=== PATIENT | male | born 1985 ===

== ENCOUNTER 2019-02-01 11:16 | Emergency (ER) | payer SELFPAY ==
--- NOTE | 2019-02-01 11:32 | Event Note ---
ED Screening Note Date of service: 02/01/19 Time: 11:28 ED Screening Note: This is a 33 y.o. M. that presents to the ER with dyspnea and anxious since last night. 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 Denies SI/HI, or travel. Admits to using crack cocaine Thursday. Reports feeling okay right now. This initial assessment/diagnostic orders/clinical plan/treatment(s) is/are subject to change based on patients health status, clinical progression and re-assessment by fellow clinical providers in the ED. Further treatment and workup at subsequent clinical providers discretion. Patient/guardian urged not to elope from the ED as their condition may be serious if not clinically assessed and managed. Initial orders include:
--- NOTE | 2019-02-01 12:02 | Emergency Department Report ---
HPI - General Chief Complaint: High BP Time Seen by Provider: 02/01/19 11:27 - HPI HPI: Room 44 The patient is a 33-year-old male presenting with a chief complaint of shortness of breath. The patient states her past 2 weeks he exhibits shortness of breath in the morning when he awakens. Patient denies chest pain cough or fever with his episodes. Patient denies nausea or vomiting. Patient admits to occasional cocaine use and states his last use occurred approximately 15 days ago. Location: [See above] Duration: [See above] Quality: [See above] Severity: [See above] Timing: [See above] Context: [See above] Modifying factors: [See above] Associated signs and symptoms: [see above] ED Past Medical Hx - Past Medical History Previous Medical History?: No - Surgical History Past Surgical History?: No - Family History Family history: no significant - Social History Smoking Status: Never Smoker Substance Use Type: Alcohol, Cocaine - Medications Home Medications: Home Medications Medication Instructions Recorded Confirmed Last Taken Type ALBUTEROL Inhaler (OR & NICU) 2 puff IH QID PRN #1 inhalation 02/01/19 Unknown Rx [Proair] Prednisone [predniSONE 10 mg 10 mg PO .TAPER #1 tab.ds.pk 02/01/19 Unknown Rx (6-Day Pack, 21 Tabs)] ED Review of Systems ROS: Stated complaint: LOW BLOOD SUGAR/ANIXETY Other details as noted in HPI Constitutional: denies: fever Eyes: denies: eye pain ENT: denies: throat pain Respiratory: shortness of breath. denies: cough Cardiovascular: denies: chest pain Endocrine: no symptoms reported Gastrointestinal: denies: abdominal pain, nausea, vomiting Genitourinary: denies: dysuria Musculoskeletal: denies: back pain Neurological: denies: headache Physical Exam - Physical Exam Vital Signs: Vital Signs 02/01/19 11:21 Temperature 98.7 F Pulse Rate 72 Respiratory 18 Rate Blood Pressure 145/91 O2 Sat by Pulse 97 Oximetry Physical Exam: GENERAL: The patient is well-developed well-nourished male sitting in chair not appearing to be in acute distress. [] HEENT: Normocephalic. Atraumatic. Extraocular motions are intact. Patient has moist mucous membranes. NECK: Supple. Trachea midline CHEST/LUNGS: Clear to auscultation. There is no respiratory distress noted. HEART/CARDIOVASCULAR: Regular. There is no tachycardia. There is no gallop rub or murmur. ABDOMEN: Abdomen is soft, nontender. Patient has normal bowel sounds. There is no abdominal distention. SKIN: There is no rash. There is no edema. There is no diaphoresis. NEURO: The patient is awake, alert, and oriented. The patient is cooperative. The patient has normal speech MUSCULOSKELETAL: There is no evidence of acute injury. ED Course Vital Signs 02/01/19 11:21 Temperature 98.7 F Pulse Rate 72 Respiratory 18 Rate Blood Pressure 145/91 O2 Sat by Pulse 97 Oximetry ED Medical Decision Making - Lab Data Result diagrams: 02/01/19 12:11 02/01/19 12:11 - EKG Data -: EKG Interpreted by Me EKG shows normal: sinus rhythm Rate: normal - EKG Data When compared to previous EKG there are: previous EKG unavailable Interpretation: other (no ischemic changes seen) - Radiology Data Radiology results: image reviewed (chest x-ray) interpreted by me: Chest x-ray-no focal infiltrates, no pneumothorax - Differential Diagnosis COPD, PE, anxiety Critical care attestation.: If time is entered above; I have spent that time in minutes in the direct care of this critically ill patient, excluding procedure time. ED Disposition Clinical Impression: Shortness of breath Disposition: DC-01 TO HOME OR SELFCARE Is pt being admited?: No Does the pt Need Aspirin: No Condition: Stable Instructions: Dyspnea (ED) Additional Instructions: Return to the emergency department should you develop worsening symptoms, inability to tolerate food or liquids, high fever or any other concerns Prescriptions: Prednisone [predniSONE 10 mg (6-Day Pack, 21 Tabs)] 10 mg PO .TAPER #1 tab.ds.pk ALBUTEROL Inhaler (OR & NICU) [Proair] 2 puff IH QID PRN #1 inhalation PRN Reason: Shortness Of Breath Referrals: ANAIS CHAO MD [Staff Physician] - 3-5 Days [facility] [Outside] - 3-5 Days
[2019-02-01 12:41] LABS: Basophils # (Auto) 0.1 K/mm3 (0.0-0.1); Basophils % (Auto) 0.8 % (0.0-1.8); Eosinophils # (Auto) 0.1 K/mm3 (0.0-0.4); Eosinophils % (Auto) 0.7 % (0.0-4.3); Hematocrit 46.6 % (35.5-45.6); Hemoglobin 16.2 gm/dl (11.8-15.2); Lymphocytes # (Auto) 2.2 K/mm3 (1.2-5.4); Lymphocytes % (Auto) 24.5 % (13.4-35.0); Mean Corpuscular HGB Conc 35 % (32-34); Mean Corpuscular Volume 86 fl (84-94); Monocytes # (Auto) 0.7 K/mm3 (0.0-0.8); Monocytes % (Auto) 7.3 % (0.0-7.3); Platelet Count 271 K/mm3 (140-440); Red Cell Distribution Width 13.8 % (13.2-15.2)
[2019-02-01 13:00] LABS: Creatine Kinase MB 2.6 ng/mL (0.0-4.0)
[2019-02-01 13:01] LABS: BUN/Creatinine Ratio 20; Blood Urea Nitrogen 14 mg/dL (9-20); Calcium 10.2 mg/dL (8.4-10.2); Hemolysis Index 10
[2019-02-01 13:15] LABS: Free T4 (Free Thyroxine) 0.95 ng/dL (0.76-1.46)
--- NOTE | 2019-02-01 14:20 | XRay Report ---
CHEST 2 VIEWS INDICATION / CLINICAL INFORMATION: shortness of breath. COMPARISON: None available. FINDINGS: SUPPORT DEVICES: None. HEART / MEDIASTINUM: No significant abnormality. LUNGS / PLEURA: No significant pulmonary or pleural abnormality. No pneumothorax. ADDITIONAL FINDINGS: No significant additional findings. IMPRESSION: No significant abnormality. Signer Name: Kyle Forbes MD FACR Signed: 02/01/2019 2:16 PM Workstation Name: [id number]
[2019-02-01 15:10] VITALS: BP 126/86
== END 2019-02-01 15:09 | disposition home or self-care (01) ==
LOC: ED 11:16
DX: R06.02 Shortness of breath (principal); Z79.899 Other long term (current) drug therapy
CPT/HCPCS: 36415; 71046; 80048; 82550; 82553; 83880; 84439; 84443; 84484; 85025; 85379; 93005; 93010

== ENCOUNTER 2019-08-06 20:18 | Emergency (ER) | payer SELFPAY ==
[2019-08-06 21:28] LABS: Basophils # (Auto) 0.1 K/mm3 (0.0-0.1); Basophils % (Auto) 0.7 % (0.0-1.8); Eosinophils # (Auto) 0.2 K/mm3 (0.0-0.4); Eosinophils % (Auto) 2.7 % (0.0-4.3); Lymphocytes # (Auto) 2.8 K/mm3 (1.2-5.4); Lymphocytes % (Auto) 37.5 % (13.4-35.0); Mean Corpuscular HGB Conc 35 % (32-34); Mean Corpuscular Volume 84 fl (84-94); Monocytes # (Auto) 0.5 K/mm3 (0.0-0.8); Monocytes % (Auto) 7.1 % (0.0-7.3); Platelet Count 220 K/mm3 (140-440); Red Blood Count 4.78 M/mm3 (3.65-5.03); Red Cell Distribution Width 13.4 % (13.2-15.2)
--- NOTE | 2019-08-06 21:29 | XRay Report ---
CHEST 2 VIEWS INDICATION / CLINICAL INFORMATION: Chest Pain. COMPARISON: Chest x-ray 02/01/2019 FINDINGS: SUPPORT DEVICES: None. HEART / MEDIASTINUM: No significant abnormality. LUNGS / PLEURA: No significant pulmonary or pleural abnormality. No pneumothorax. ADDITIONAL FINDINGS: No significant additional findings. IMPRESSION: 1. No acute findings. Signer Name: Joaquin Jenkins MD Signed: 08/06/2019 9:24 PM Workstation Name: [id number]
[2019-08-06 21:48] LABS: BUN/Creatinine Ratio 21; Blood Urea Nitrogen 17 mg/dL (9-20); Calcium 9.7 mg/dL (8.4-10.2); Hemolysis Index 13
[2019-08-06 22:41] VITALS: BP 141/87
--- NOTE | 2019-08-06 22:45 | Emergency Department Report ---
ED General Adult HPI - General Chief complaint: Chest Pain Stated complaint: SOB Time Seen by Provider: 08/06/19 22:02 Source: patient Mode of arrival: Ambulatory Limitations: No Limitations - History of Present Illness Initial comments: This pleasant 34-year-old male presents the emergency department chief complaint of intermittent tightness in the left side of his chest over the past few 6 months. Patient was seen in the emergency department and given prednisone and an albuterol inhaler and reports this really helped his symptoms however he is out of the medication. He reports that over the past week he has been having increasing tightness in his chest with some associated shortness of breath. He points to the left side of his sternum with one finger. He rates the severity of his symptoms as a 2 out of 10 and states he is not having any pain currently. He states the last time he had any pain was over 1 week ago. He denies any cough, recent travel, fever, chills, night sweats, headache, dizziness, blurry vision, hemoptysis, lower extremity edema. He denies any known past medical history, current medication use or known allergies to medications. He denies any recent travel or immobilization. He does report he quit smoking 4 months ago. He denies any sudden cardiac or coronary artery disease in his family history. He denies any personal history of hypertension, diabetes, hyperlipidemia. - Related Data Previous Rx's Medication Instructions Recorded Last Taken Type Albuterol INH(or & Nicu Only) 2 puff IH QID PRN #1 inhalation 02/01/19 Unknown Rx [Proair] Prednisone [predniSONE 10 mg 10 mg PO .TAPER #1 tab.ds.pk 02/01/19 Unknown Rx (6-Day Pack, 21 Tabs)] Albuterol Sulfate [Proventil Hfa] 6.7 gm IH Q4HR PRN #1 hfa.aer.ad 08/06/19 Unknown Rx Loratadine [Claritin] 10 mg PO QDAY #20 tablet 08/06/19 Unknown Rx Allergies Allergy/AdvReac Type Severity Reaction Status Date / Time No Known Allergies Allergy Unverified 02/01/19 11:18 ED Review of Systems ROS: Stated complaint: SOB Other details as noted in HPI Comment: All other systems reviewed and negative Constitutional: denies: chills, fever Eyes: denies: eye pain, eye discharge, vision change ENT: denies: ear pain, throat pain Respiratory: shortness of breath. denies: cough, wheezing Cardiovascular: as per HPI, chest pain. denies: palpitations Endocrine: no symptoms reported Gastrointestinal: denies: abdominal pain, nausea, diarrhea Genitourinary: denies: urgency, dysuria Musculoskeletal: as per HPI. denies: back pain, joint swelling, arthralgia Skin: denies: rash, lesions Neurological: denies: headache, weakness, paresthesias Psychiatric: denies: anxiety, depression Hematological/Lymphatic: denies: easy bleeding, easy bruising ED Past Medical Hx - Past Medical History Previous Medical History?: No - Surgical History Past Surgical History?: No - Social History Smoking Status: Current Some Day Smoker Substance Use Type: Alcohol - Medications Home Medications: Home Medications Medication Instructions Recorded Confirmed Last Taken Type Albuterol INH(or & Nicu Only) 2 puff IH QID PRN #1 inhalation 02/01/19 Unknown Rx [Proair] Prednisone [predniSONE 10 mg 10 mg PO .TAPER #1 tab.ds.pk 02/01/19 Unknown Rx (6-Day Pack, 21 Tabs)] Albuterol Sulfate [Proventil Hfa] 6.7 gm IH Q4HR PRN #1 hfa.aer.ad 08/06/19 Unk nown Rx Loratadine [Claritin] 10 mg PO QDAY #20 tablet 08/06/19 Unknown Rx ED Physical Exam - General Limitations: No Limitations General appearance: alert, in no apparent distress - Head Head exam: Present: atraumatic, normocephalic - Eye Eye exam: Present: normal appearance, PERRL, EOMI Pupils: Present: normal accommodation - ENT ENT exam: Present: normal exam, normal orophraynx, mucous membranes moist, TM's normal bilaterally - Neck Neck exam: Present: normal inspection, full ROM. Absent: tenderness, meningismus - Respiratory Respiratory exam: Present: normal lung sounds bilaterally. Absent: respiratory distress, wheezes, rales, rhonchi, stridor, chest wall tenderness - Cardiovascular Cardiovascular Exam: Present: regular rate, normal rhythm, normal heart sounds. Absent: systolic murmur, diastolic murmur, rubs, gallop - GI/Abdominal GI/Abdominal exam: Present: soft, normal bowel sounds. Absent: distended, tenderness, guarding, rebound, rigid - Rectal Rectal exam: Present: deferred - Extremities Exam Extremities exam: Present: normal inspection, full ROM, normal capillary refill. Absent: tenderness, calf tenderness (Negative Homans sign bilaterally, no posterior calf tenderness, normal DP and PT pulses, no palpable cords.) - Back Exam Back exam: Present: normal inspection - Neurological Exam Neurological exam: Present: alert, oriented X3 - Psychiatric Psychiatric exam: Present: normal affect, normal mood - Skin Skin exam: Present: warm, dry, intact, normal color. Absent: rash ED Course Vital Signs 08/06/19 21:01 Temperature 98.5 F Pulse Rate 83 Respiratory 18 Rate Blood Pressure 141/87 O2 Sat by Pulse 97 Oximetry ED Medical Decision Making - Lab Data Result diagrams: 08/06/19 21:08/06/19 21: Lab Results 08/06/19 08/06/19 Range/Units 21:20 21:20 WBC 7.5 (4.5-11.0) K/mm3 RBC 4.78 (3.65-5.03) M/mm3 Hgb 14.0 (11.8-15.2) gm/dl Hct 40.0 (35.5-45.6) % MCV 84 (84-94) fl MCH 29 (28-32) pg MCHC 35 H (32-34) % RDW 13.4 (13.2-15.2) % Plt Count 220 (140-440) K/mm3 Lymph % (Auto) 37.5 H (13.4-35.0) % Pacific % (Auto) 7.1 (0.0-7.3) % Eos % (Auto) 2.7 (0.0-4.3) % Baso % (Auto) 0.7 (0.0-1.8) % Lymph # 2.8 (1.2-5.4) K/mm3 Pacific # 0.5 (0.0-0.8) K/mm3 Eos # 0.2 (0.0-0.4) K/mm3 Baso # 0.1 (0.0-0.1) K/mm3 Seg Neutrophils % 52.0 (40.0-70.0) % Seg Neutrophils # 3.9 (1.8-7.7) K/mm3 Sodium 140 (137-145) mmol/L Potassium 3.9 (3.6-5.0) mmol/L Chloride 101.9 (98-107) mmol/L Carbon Dioxide 26 (22-30) mmol/L Anion Gap 16 mmol/L BUN 17 (9-20) mg/dL Creatinine 0.8 (0.8-1.5) mg/dL Estimated GFR > 60 ml/min BUN/Creatinine Ratio 21 % Glucose 67 L (75-100) mg/dL Calcium 9.7 (8.4-10.2) mg/dL Troponin T < 0.010 (0.00-0.029) ng/mL - EKG Data -: EKG Interpreted by Ms EKG shows normal: sinus rhythm Rate: normal (73) - EKG Data When compared to previous EKG there are: previous EKG unavailable Interpretation: normal EKG (No acute ST or T wave abnormalities, no STEMI, normal axis, normal intervals) - Radiology Data Radiology results: report reviewed, image reviewed XRay Report Signed Patient: DAYNE MOON MR#: [id number] : 1985 Acct:[id number] Age/Sex: 34 / M ADM Date: 08/06/19 Loc: ED Attending Dr: Ordering Physician: ED MD TERESA Date of Service: 08/06/19 Procedure(s): XR chest routine 2V Accession Number(s): [id number] cc: ED MD TERESA Fluoro Time In Minutes: CHEST 2 VIEWS INDICATION / CLINICAL INFORMATION: Chest Pain. COMPARISON: Chest x-ray 02/01/2019 FINDINGS: SUPPORT DEVICES: None. HEART / MEDIASTINUM: No significant abnormality. LUNGS / PLEURA: No significant pulmonary or pleural abnormality. No pneum othorax. ADDITIONAL FINDINGS: No significant additional findings. IMPRESSION: 1. No acute findings. Signer Name: Joaquin Jenkins MD Signed: 08/06/2019 9:24 PM Workstation Name: [id number] Transcribed By: TL Dictated By: Joaquin Jenkins MD Electronically Authenticated By: Joaquin Jenkins MD Signed Date/Time: 08/06/192123 - Medical Decision Making Patient is nontoxic in no acute distress. Patient is currently asymptomatic and is not had any symptoms over the past week. EKG is unremarkable and troponin is negative. Patient's heart score is a 1 and that is just due to him being a previous smoker. He is not any history of hyperlipidemia, hypertension, diabetes or significant family history of coronary artery disease. He is not currently smoking. He has not any pain over the past week and is not any current pain and with a heart score of 1 my suspicion for acute coronary syndrome is very low. The patient's chest x-ray was clear with no signs of pneumothorax, pneumomediastinum, pneumoperitoneum, pneumonia rib fracture or any other acute finding. The mediastinum was not widened and the radial pulses are equal bilaterally with no tearing or ripping pain to the back making an acute aortic dissection unlikely. Patient is PERC negative. And has a low Wells risk for PE with no tachycardia or hypoxia no recent immobilizations or testosterone/estrogen use making PE very unlikely. He had no clinical evidence of a DVT on exam. Patient reports previous inhaler use has helped him in the past. I will prescribe an inhaler as needed and Claritin. I do not think any steroids are needed due to the lack of any symptoms at this time. I did educate the patient that he need to follow-up with a primary care doctor which will provide him 1. He was instructed to return to the emergency department with any changing worsening symptoms. He verbalized understanding the diagnosis, treatment plan and follow-up instructions and all of his questions were answered. - Differential Diagnosis Bronchospasm, chest wall pain, PE, ACS, pneumothorax, aortic dissection Critical care attestation.: If time is entered above; I have spent that time in minutes in the direct care of this critically ill patient, excluding procedure time. ED Disposition Clinical Impression: Acute nonspecific chest pain with low risk of coronary artery disease Disposition: - TO HOME OR SELFCARE Is pt being admited?: No Condition: Stable Instructions: Chest Pain (ED) Prescriptions: Loratadine [Claritin] 10 mg PO QDAY #20 tablet Albuterol Sulfate [Proventil Hfa] 6.7 gm IH Q4HR PRN #1 hfa.aer.ad PRN Reason: Bronchospasm Referrals: [facility] [Provider Group] - 3-5 Days STAN CAMPOVERDE MD [Staff Physician] - 3-5 Days Time of Disposition: 22:53
== END 2019-08-06 23:28 | disposition home or self-care (01) ==
LOC: ED 20:18
DX: R07.89 Other chest pain (principal); F17.200 Nicotine dependence, unspecified, uncomplicated; Z79.899 Other long term (current) drug therapy
CPT/HCPCS: 36415; 71046; 80048; 84484; 85025; 93005

== ENCOUNTER 2019-08-11 09:18 | Emergency (ER) | payer SELFPAY ==
[2019-08-11 09:26] VITALS: BP 137/88
[2019-08-11] MEDS ORDERED: predniSONE 20 MG TAB PO ONE (12:32)
--- NOTE | 2019-08-11 12:40 | Emergency Department Report ---
ED Shortness of Breath HPI - General Chief Complaint: Dyspnea/Respdistress Stated Complaint: SOB/ Time Seen by Provider: 08/11/19 12:16 Source: patient Mode of arrival: Ambulatory Limitations: No Limitations - History of Present Illness Initial Comments: 34 year old male presents to ED c/o SOB. He states he has been feeling SOB all week. He states its intermittent mainly when laying down, he feels SOB and has to sit up. He reports intermittent episodes of palpitations in left chest but denies any chest pain or discomfort. He denies any diaphoresis, nausea, vomiting, cough, URI symptoms fever or chills. He denies any calf pain or leg swelling. He does admit to hx of tobacco use but he states he stopped smoking in february 2019. He also admits to smoking crystal meth this past thursday. He denies any other drug use. He denies hx of CAD, dysrhythmia, diabetes, hypertension hyperlipidemia, or asthma, COPD or any other significant past medical history. He denies family history of coronary artery disease. He denies any history of PE/DVT. Patient reports similar symptoms back in February. He states that he was prescribed albuterol MDI, and prednisone which did help his symptoms. Patient was seen here on August 06, 2019 for similar symptoms that he is present with today. Work-up at the time including EKG was unremarkable. Patient risk for ACS, was low, and he had a negative PERC score therefore no further work-up or admission was indicated at the time. Patient was discharged in stable condition with a prescription for albuterol and loratadine. Patient states that he has been taking the loratadine and has been using albuterol, but he has not noticed much relief of his symptoms. Patient does not currently have a primary care doctor. MD Complaint: shortness of breath -: week(s) ("all week") - Related Data Previous Rx's Medication Instructions Recorded Last Taken Type Albuterol INH(or & Nicu Only) 2 puff IH QID PRN #1 inhalation 02/01/19 Unknown Rx [Proair] Albuterol Sulfate [Proventil Hfa] 6.7 gm IH Q4HR PRN #1 hfa.aer.ad 08/06/19 Unknown Rx Loratadine [Claritin] 10 mg PO QDAY #20 tablet 04/25/20 Unknown Rx Prednisone [predniSONE 10 mg 10 mg PO .TAPER #1 tab.ds.pk 08/11/19 Unknown Rx (6-Day Pack, 21 Tabs)] Allergies Allergy/AdvReac Type Severity Reaction Status Date / Time No Known Allergies Allergy Verified 08/11/19 09:20 ED Review of Systems ROS: Stated complaint: SOB/ Other details as noted in HPI Constitutional: denies: chills, diaphoresis, fever, weakness Respiratory: shortness of breath (mainly when laying down). denies: cough, orthopnea, SOB with exertion, stridor, wheezing Cardiovascular: palpitations. denies: chest pain, edema Gastrointestinal: denies: abdominal pain, nausea, vomiting Musculoskeletal: denies: back pain Neurological: denies: headache, weakness, numbness, paresthesias, confusion, abnormal gait Psychiatric: denies: anxiety, depression, auditory hallucinations, visual hallucinations, homicidal thoughts, suicidal thoughts ED Past Medical Hx - Past Medical History Previous Medical History?: No - Social History Smoking Status: Never Smoker Substance Use Type: None - Medications Home Medications: Home Medications Medication Instructions Recorded Confirmed Last Taken Type Albuterol INH(or & Nicu Only) 2 puff IH QID PRN #1 inhalation 02/01/19 Unknown Rx [Proair] Albuterol Sulfate [Proventil Hfa] 6.7 gm IH Q4HR PRN #1 hfa.aer.ad 08/06/19 Unknown Rx Loratadine [Claritin] 10 mg PO QDAY #20 tablet 08/06/19 Unknown Rx Prednisone [predniSONE 10 mg 10 mg PO .TAPER #1 tab.ds.pk 08/11/19 Unknown Rx (6-Day Pack, 21 Tabs)] ED Physical Exam - General Limitations: No Limitations General appearance: alert, in no apparent distress - Head Head exam: Present: atraumatic, normocephalic, normal inspection - Eye Eye exam: Present: normal appearance, PERRL, EOMI Pupils: Present: normal accommodation - ENT ENT exam: Present: normal exam, normal orophraynx, mucous membranes moist - Respiratory Respiratory exam: Present: normal lung sounds bilaterally. Absent: respiratory distress, wheezes, chest wall tenderness, decreased breath sounds - Cardiovascular Cardiovascular Exam: Present: regular rate, normal rhythm, normal heart sounds - GI/Abdominal GI/Abdominal exam: Present: soft. Absent: distended - Extremities Exam Extremities exam: Present: full ROM. Absent: tenderness, pedal edema, calf tenderness - Neurological Exam Neurological exam: Present: alert, oriented X3, CN II-XII intact, normal gait - Psychiatric Psychiatric exam: Present: normal mood - Skin Skin exam: Present: intact ED Course Vital Signs 08/11/19 09:25 Temperature 97.7 F Pulse Rate 68 Respiratory 18 Rate Blood Pressure 137/88 O2 Sat by Pulse 98 Oximetry ED Medical Decision Making - Lab Data Result diagrams: 08/11/19 13:24 08/11/19 13:24 - EKG Data EKG shows normal: sinus rhythm Rate: normal, bradycardia (56) - EKG Data When compared to previous EKG there are: no significant change Interpretation: normal EKG - Radiology Data Radiology results: report reviewed Findings [facility] [address] [place] [address] XRay Report Signed Patient: DAYNE MOON MR#: [id number] : 1985 Acct:[id number] Age/Sex: 34 / M ADM Date: 08/11/19 Loc: ED Attending Dr: Ordering Physician: ARLENE AGUILAR Date of Service: 08/11/19 Procedure(s): XR chest routine 2V Accession Number(s): [id number] cc: ARLENE AGUILAR Fluoro Time In Minutes: CHEST 2 VIEWS INDICATION: SOB/palpitations. COMPARISON: 08/06/2019 FINDINGS: Support devices: None. Heart: Within normal limits. Lungs/pleura: No acute air space or interstitial disease. No pneumothorax. Additional findings: None. IMPRESSION: No acute findings. No change since the exam 5 days ago. Signer Name: Perez Zuniga Jr, MD Signed: 08/11/2019 12:59 PM Workstation Name: [id number] Transcribed By: TTR Dictated By: PEREZ ZUNIGA JR, MD Electronically Authenticated By: PEREZ ZUNIGA JR, MD Signed Date/Time: 08/11/19 1259 DD/ 1258 TD/TT: - Medical Decision Making 1505 -- Pt presented to ED c/o SOB. Mainly when laying down. He also reported intermittent palpitations. This is patient's second visit this week for similar symptoms. Patient was previous smoker, but stopped in february 2020, and he does admit to meth use this past thursday. Otherwise he has no other CAD risk factors. He has MACE score of 1 secondary to his previous smoking hx but very low suspicion that his symptoms are related to ACS. EKGs show now acute ischemic changes, and no changes compared to when he was here few days ago. He has negative PERC score and D Dimer today negative. Patient is currently sitting up in bed on his phone, resting comfortably, he is not an an pain nor respiratory distress, and his VS are all normal. Exact cause of patient symptoms unclear. He reports that when he had similar symptoms back in february he was prescribed both albuterol and prednisone and he believes that that combo will work again for him. So he was instructed to continue albuterol MDI and will prescribe him few days of steriods. Did discuss drug use cessation with patient. I recommend he follows up with PCP for possible referral to card iology/pulmonology. At this time there is no indication for Admission or emergent consult at this time. Patient stable at time of d/c. Critical care attestation.: If time is entered above; I have spent that time in minutes in the direct care of this critically ill patient, excluding procedure time. ED Disposition Clinical Impression: Dyspnea, Palpitation Disposition: DC-01 TO HOME OR SELFCARE Is pt being admited?: No Does the pt Need Aspirin: No Condition: Stable Instructions: Palpitations (ED), Dyspnea (ED) Prescriptions: Prednisone [predniSONE 10 mg (6-Day Pack, 21 Tabs)] 10 mg PO .TAPER #1 tab.ds.pk Referrals: STAN CAMPOVERDE MD [Staff Physician] - 3-5 Days Forms: Work/School Release Form(ED) Time of Disposition: 15:20
[2019-08-11 13:00] LABS: Amphetamine Screen,Urine PRESUMPTIVE NEGATIVE; Benzodiazepines Screen,Urine PRESUMPTIVE NEGATIVE; Cannabinoid Screen,Urine PRESUMPTIVE NEGATIVE; Cocaine Screen,Urine PRESUMPTIVE NEGATIVE; Methadone Screen,Urine PRESUMPTIVE NEGATIVE; Opiate Screen,Urine PRESUMPTIVE NEGATIVE
--- NOTE | 2019-08-11 13:03 | XRay Report ---
CHEST 2 VIEWS INDICATION: SOB/palpitations. COMPARISON: 08/06/2019 FINDINGS: Support devices: None. Heart: Within normal limits. Lungs/pleura: No acute air space or interstitial disease. No pneumothorax. Additional findings: None. IMPRESSION: No acute findings. No change since the exam 5 days ago. Signer Name: Perez Zuniga Jr, MD Signed: 08/11/2019 12:59 PM Workstation Name: [id number]
[2019-08-11 14:19] LABS: Basophils % (Auto) 0.7 % (0.0-1.8); Eosinophils # (Auto) 0.1 K/mm3 (0.0-0.4); Eosinophils % (Auto) 1.7 % (0.0-4.3); Hemoglobin 14.6 gm/dl (11.8-15.2); Lymphocytes % (Auto) 37.3 % (13.4-35.0); Mean Corpuscular HGB Conc 35 % (32-34); Mean Corpuscular Volume 84 fl (84-94); Monocytes # (Auto) 0.3 K/mm3 (0.0-0.8); Monocytes % (Auto) 6.5 % (0.0-7.3); Platelet Count 224 K/mm3 (140-440); Red Blood Count 4.98 M/mm3 (3.65-5.03); Red Cell Distribution Width 13.9 % (13.2-15.2)
[2019-08-11 14:55] LABS: Alanine Aminotransferase 31 units/L (7-56); Albumin 4.8 g/dL (3.9-5); BUN/Creatinine Ratio 23; Blood Urea Nitrogen 14 mg/dL (9-20); Calcium 9.9 mg/dL (8.4-10.2); Hemolysis Index 78
== END 2019-08-11 15:37 | disposition home or self-care (01) ==
LOC: ED 09:18
DX: R06.00 Dyspnea, unspecified (principal); R00.2 Palpitations; Z79.899 Other long term (current) drug therapy
CPT/HCPCS: 36415; 71046; 80053; 80307; 83880; 84484; 85025; 85379; 93005; 99284; J7512

== ENCOUNTER 2019-08-24 23:56 | Emergency (ER) | payer SELFPAY ==
[2019-08-25] MEDS ORDERED: ASPIRIN 325 MG TAB PO ONE (04:14)
[2019-08-25] MEDS ORDERED: hydrOXYzine PAMOATE 25 MG CAP PO ONE (04:14)
[2019-08-25] MEDS ORDERED: methylPREDNISolone Sod Succinate 125 MG/2 ML INJ IV ONE (04:14)
[2019-08-25] MEDS ORDERED: IPRATROPIUM/ALBUTEROL SULFATE 3 ML AMPUL.NEB IH ONE (04:14)
--- NOTE | 2019-08-25 04:49 | XRay Report ---
CHEST 1 VIEW INDICATION: chest pain, dyspnea. COMPARISON: 08/11/2019 FINDINGS: Support devices: None. Heart: Within normal limits. Lungs/Pleura: No acute air space or interstitial disease. Additional findings: None. IMPRESSION: 1. No acute findings. Signer Name: Krzysztof Fofana MD Signed: 08/25/2019 4:44 AM Workstation Name: [id number]
[2019-08-25 04:51] LABS: Basophils % (Auto) 0.4 % (0.0-1.8); Eosinophils # (Auto) 0.1 K/mm3 (0.0-0.4); Eosinophils % (Auto) 1.2 % (0.0-4.3); Hematocrit 40.6 % (35.5-45.6); Hemoglobin 14.1 gm/dl (11.8-15.2); Lymphocytes % (Auto) 36.1 % (13.4-35.0); Mean Corpuscular HGB Conc 35 % (32-34); Mean Corpuscular Volume 84 fl (84-94); Monocytes # (Auto) 0.6 K/mm3 (0.0-0.8); Monocytes % (Auto) 7.4 % (0.0-7.3); Platelet Count 236 K/mm3 (140-440); Red Blood Count 4.84 M/mm3 (3.65-5.03)
[2019-08-25 05:16] LABS: Alanine Aminotransferase 23 units/L (7-56); Albumin 4.8 g/dL (3.9-5); BUN/Creatinine Ratio 30; Blood Urea Nitrogen 21 mg/dL (9-20); Calcium 9.7 mg/dL (8.4-10.2); Hemolysis Index 10
--- NOTE | 2019-08-25 06:15 | Emergency Department Report ---
ED General Adult HPI - General Chief complaint: Anxiety Stated complaint: KIMBERLY Source: patient, EMS, leasing property manager Mode of arrival: Ambulatory Limitations: No Limitations - History of Present Illness Initial comments: Patient is a 34-year-old male with a history of anxiety and a former cocaine abuser who presented to the ED with acute onset persistent chest wall tightness, shortness of breath, tingling sensation in his upper extremities bilaterally and chills for the last 4 hours. Patient states that the symptoms are similar to what he felt about a month ago when he came to this ED. Patient states that he then followed up with the primary care physician who diagnosed him with anxiety and is currently taking Celexa for the same. Patient denies dizziness, syncope, abdominal pain, nausea, vomiting, vision changes, neck pain, cough, fever, diaphoresis, upper and lower extremity weakness or numbness, traumatic injury or heavy lifting. Patient unsure of the trigger of his symptoms. The patient's history was obtained through a Urdu orthophotography technician service. MD Complaint: shortness of breath, left-sided chest wall tightness; tingling of arms -: Sudden, hour(s) (4) Location: chest Radiation: non-radiation Severity scale (0 -10): 2 Quality: aching, dull Consistency: intermittent Improves with: none Worsens with: none Associated Symptoms: denies other symptoms, chest pain (tightness), shortness of breath. denies: confusion, cough, diaphoresis, fever/chills, headaches, loss of appetite, malaise, nausea/vomiting, rash, seizure, syncope, weakness, other Treatments Prior to Arrival: none - Related Data Previous Rx's Medication Instructions Recorded Last Taken Type Albuterol INH(or & Nicu Only) 2 puff IH QID PRN #1 inhalation 02/01/19 Unknown Rx [Proair] Albuterol Sulfate [Proventil Hfa] 6.7 gm IH Q4HR PRN #1 hfa.aer.ad 08/06/19 Unknown Rx Loratadine [Claritin] 10 mg PO QDAY #20 tablet 08/06/19 Unknown Rx Prednisone [predniSONE 10 mg 10 mg PO .TAPER #1 tab.ds.pk 08/11/19 Unknown Rx (6-Day Pack, 21 Tabs)] Ibuprofen [Motrin] 600 mg PO Q8H PRN #20 tablet 08/25/19 Unknown Rx hydrOXYzine PAMOATE [Vistaril] 25 mg PO Q6HR PRN #30 capsule 08/25/19 Unknown Rx Allergies Allergy/AdvReac Type Severity Reaction Status Date / Time No Known Allergies Allergy Verified 08/25/19 00:10 ED Review of Systems ROS: Stated complaint: KIMBERLY Other details as noted in HPI Constitutional: denies: chills, fever Eyes: denies: eye pain, eye discharge, vision change ENT: denies: ear pain, throat pain Respiratory: shortness of breath. denies: cough, wheezing Cardiovascular: chest pain (tightness). denies: palpitations Endocrine: no symptoms reported Gastrointestinal: denies: abdominal pain, nausea, diarrhea Genitourinary: denies: urgency, dysuria Musculoskeletal: denies: back pain, joint swelling, arthralgia Skin: denies: rash, lesions Neurological: denies: headache, weakness, paresthesias Psychiatric: anxiety. denies: depression Hematological/Lymphatic: denies: easy bleeding, easy bruising ED Past Medical Hx - Past Medical History Hx Psychiatric Treatment: Yes (Anxiety) - Social History Smoking Status: Never Smoker Substance Use Type: Cocaine - Medications Home Medications: Home Medications Medication Instructions Recorded Confirmed Last Taken Type Albuterol INH(or & Nicu Only) 2 puff IH QID PRN #1 inhalation 02/01/19 Unknown Rx [Proair] Albuterol Sulfate [Proventil Hfa] 6.7 gm IH Q4HR PRN #1 hfa.aer.ad 08/06/19 Unknown Rx Loratadine [Claritin] 10 mg PO QDAY #20 tablet 08/06/19 Unknown Rx Prednisone [predniSONE 10 mg 10 mg PO .TAPER #1 tab.ds.pk 08/11/19 Unknown Rx (6-Day Pack, 21 Tabs)] Ibuprofen [Motrin] 600 mg PO Q8H PRN #20 tablet 08/25/19 Unknown Rx hydrOXYzine PAMOATE [Vistaril] 25 mg PO Q6HR PRN #30 capsule 08/25/19 Unknown Rx ED Physical Exam - General Limitations: No Limitations General appearance: alert, in no apparent distress - Head Head exam: Present: atraumatic, normocephalic, normal inspection - Eye Eye exam: Present: normal appearance, PERRL, EOMI Pupils: Present: normal accommodation - ENT ENT exam: Present: normal exam, normal orophraynx, mucous membranes moist, TM's normal bilaterally, normal external ear exam - Neck Neck exam: Present: normal inspection, full ROM - Respiratory Respiratory exam: Present: wheezes (Mildly diffuse wheezes throughout). Absent: respiratory distress, rales, rhonchi, chest wall tenderness, accessory muscle use, decreased breath sounds, prolonged expiratory - Cardiovascular Cardiovascular Exam: Present: regular rate, normal rhythm, normal heart sounds. Absent: systolic murmur, diastolic murmur, rubs, gallop - GI/Abdominal GI/Abdominal exam: Present: soft, normal bowel sounds. Absent: tenderness, guarding, rebound, hyperactive bowel sounds, hypoactive bowel sounds, organomegaly - Extremities Exam Extremities exam: Present: normal inspection, full ROM, normal capillary refill - Back Exam Back exam: Present: normal inspection, full ROM. Absent: tenderness, CVA tenderness (R), CVA tenderness (L), muscle spasm, paraspinal tenderness, vertebr al tenderness - Neurological Exam Neurological exam: Present: alert, oriented X3, CN II-XII intact, normal gait, reflexes normal - Psychiatric Psychiatric exam: Present: normal affect, normal mood, anxious - Skin Skin exam: Present: warm, dry, intact, normal color. Absent: rash ED Course Vital Signs 08/25/19 08/25/19 08/25/19 00:03 06:35 06:36 Temperature 98.2 F 98.7 F 98.7 F Pulse Rate 80 78 73 Respiratory 18 16 16 Rate Blood Pressure 130/63 127/73 Blood Pressure 127/73 [Right] O2 Sat by Pulse 98 98 98 Oximetry ED Medical Decision Making - Lab Data Result diagrams: 08/25/19 04:27 08/25/19 04:27 - EKG Data EKG shows normal: sinus rhythm Rate: normal - EKG Data Interpretation: normal EKG 08/25/19 07:06 The EKG shows normal sinus rhythm with a ventricular rate of [address] or T wave abnormalities. - Radiology Data Radiology results: report reviewed, image reviewed Findings [facility] [address] [place] [address] XRay Report Signed Patient: DAYNE MOON MR#: [id number] : 1985 Acct:[id number] Age/Sex: 34 / M ADM Date: 08/24/19 Loc: ED Attending Dr: Ordering Physician: DARRYN LANGE Date of Service: 08/25/19 Procedure(s): XR chest 1V ap Accession Number(s): [id number] cc: DARRYN LANGE Fluoro Time In Minutes: CHEST 1 VIEW INDICATION: chest pain, dyspnea. COMPARISON: 08/11/2019 FINDINGS: Support devices: None. Heart: Within normal limits. Lungs/Pleura: No acute air space or interstitial disease. Additional findings: None. IMPRESSION: 1. No acute findings. Signer Name: Krzysztof Fofana MD Signed: 08/25/2019 4:44 AM Workstation Name: [id number] Transcribed By: MARK Dictated By: Krzysztof Fofana MD Electronically Authenticated By: Krzysztof Fofana MD Signed Date/Time: 08/25/19443 DD/ 3 TD/TT: - Medical Decision Making This is a 34-year-old male with a history of anxiety and a former cocaine abuser who presented to the ED with acute onset persistent chest wall tightness, shortness of breath, tingling sensation in his upper extremities bilaterally and chills for the last 4 hours. Patient states that the symptoms are similar to what he felt about a month ago when he came to this ED. Patient states that he then followed up with the primary care physician who diagnosed him with anxiety and is currently taking Celexa for the same. In the ED, patient is alert and oriented x3 and is not in distress with normal vital signs. The EKG shows normal sinus rhythm with ventricular rate of [address] or T wave abnormalities. Chest x-ray shows no acute cardiopulmonary abnormalities or pneumonitis. Lab test results were reviewed and are all nonactionable. Patient was treated in the ED with aspirin and also given Solu-Medrol and DuoNeb. On reevaluation, patient wheezing resolved and patient felt better and more relaxed. Other differential diagnosis were considered during this visit including anxiety, coronary artery disease although the patient does not have any risk factors for CAD, PE, pneumonia or bronchitis. Patient was discharged home on Vistaril for anxiety in addition to his Celexa that he has been taking. Patient was advised to follow-up with his primary care physician in 5 to 7 days for reevaluation or return to the ED immediately if symptoms get worse. - Differential Diagnosis CAD; Pneumonia; Anxiety; Bronchitis/Asthma Critical care attestation.: If time is entered above; I have spent that time in minutes in the direct care of this critically ill patient, excluding procedure time. ED Disposition Clinical Impression: Shortness of breath, Anxiety as acute reaction to exceptional stress, Tightness in chest Disposition: DC-01 TO HOME OR SELFCARE Is pt being admited?: No Does the pt Need Aspirin: No Condition: Stable Instructions: Generalized Anxiety Disorder (ED), Dyspnea (ED) Additional Instructions: Todos los resultados de las pruebas de laboratorio y el informe de imgenes no son notables, sin anormalidades. Es probable que cris sntomas se deban a la ansiedad que le provoca opresin en el pecho y dificultad para respirar, lo que lo lleva a un estado de pepper de ataque de pnico. Por lo tanto, tome los medicamentos segn lo recomendado, tome muchos lquidos y chris un seguimiento con moore mdico de atencin primaria en 3 a 5 hood para la reevaluacin. Regrese al servicio de urgencias de inmediato si los sntomas empeoran. Prescriptions: Ibuprofen [Motrin] 600 mg PO Q8H PRN #20 tablet PRN Reason: Pain hydrOXYzine PAMOATE [Vistaril] 25 mg PO Q6HR PRN #30 capsule PRN Reason: Anxiety Referrals: [facility] [Provider Group] - 3-5 Days [facility] [Outside] - 3-5 Days Time of Disposition: 06:12 Print Language: PALAUAN
[2019-08-25 06:36] VITALS: BP 127/73
== END 2019-08-25 06:48 | disposition home or self-care (01) ==
LOC: ED 23:56
DX: R07.89 Other chest pain (principal); R06.02 Shortness of breath; F41.9 Anxiety disorder, unspecified
CPT/HCPCS: 36415; 71045; 80053; 84484; 85025; 93005; 96374; 99284; J2930; Q0177

== ENCOUNTER 2019-11-08 20:35 | Emergency (ER) | payer SELFPAY ==
[2019-11-08 21:24] LABS: Basophils % (Auto) 0.3 % (0.0-1.8); Eosinophils # (Auto) 0.1 K/mm3 (0.0-0.4); Eosinophils % (Auto) 1.1 % (0.0-4.3); Hematocrit 46.5 % (35.5-45.6); Hemoglobin 15.9 gm/dl (11.8-15.2); Lymphocytes # (Auto) 3.3 K/mm3 (1.2-5.4); Lymphocytes % (Auto) 34.2 % (13.4-35.0); Mean Corpuscular HGB Conc 34 % (32-34); Mean Corpuscular Volume 86 fl (84-94); Monocytes # (Auto) 0.6 K/mm3 (0.0-0.8); Monocytes % (Auto) 6.8 % (0.0-7.3); Platelet Count 226 K/mm3 (140-440); Red Blood Count 5.38 M/mm3 (3.65-5.03); Red Cell Distribution Width 13.5 % (13.2-15.2)
--- NOTE | 2019-11-08 21:35 | XRay Report ---
CHEST 2 VIEWS INDICATION: Chest Pain. COMPARISON: 08/25/2019 FINDINGS: Support devices: None. Heart: Within normal limits. Lungs/Pleura: No acute air space or interstitial disease. No significant pleural effusion. IMPRESSION: No acute findings. Signer Name: Gene Luo MD Signed: 11/08/2019 9:31 PM Workstation Name: [id number]
[2019-11-08 21:50] LABS: Blood Urea Nitrogen 15 mg/dL (9-20); Calcium 9.8 mg/dL (8.4-10.2); Hemolysis Index 13
[2019-11-08 21:57] LABS: BUN/Creatinine Ratio 21
[2019-11-08] MEDS ORDERED: FAMOTIDINE 20 MG TAB PO ONE (23:47)
[2019-11-08] MEDS ORDERED: SUCRALFATE 1 GM/10 ML ORAL LIQD PO ONE (23:47)
[2019-11-08] MEDS ORDERED: ACETAMINOPHEN 500 MG TAB PO ONE (23:47)
--- NOTE | 2019-11-08 23:47 | Emergency Department Report ---
ED Chest Pain HPI - General Chief Complaint: Chest Pain Stated Complaint: KIMBERLY PUI?: No Time Seen by Provider: 11/08/19 23:40 Source: patient, RN notes reviewed, old records reviewed Mode of arrival: Ambulatory Limitations: No Limitations, Language Barrier (Please note that this provider is conversational in Honduran) - History of Present Illness Initial Comments: Patient is a 34-year-old gentleman. He is not known to myself previously. He does not have a primary care doctor. He denies chronic medical conditions. He presents to the ER with a complaint of left-sided chest discomfort, present for a few months. He indicates he does not radiate to the back, arms or neck. He denies vomiting, diaphoresis, shortness of breath. He denies family history of DVT, pulmonary embolism, heart disease. He denies recent travel, surgeries, leg pain and leg swelling. The patient has been seen in this department multiple times in the past few weeks for similar complaints. He has had multiple negative troponins, 2- D- dimers, and EKGs which have been unremarkable in the past. He indicates his pain does not radiate anywhere, and does not have exacerbating or relieving factors that he is aware MD Complaint: chest pain -: Gradual, month(s) Pain Location: left chest Pain Radiation: none Consistency: intermittent Improves With: nothing Worsens With: nothing Aspirin use within the Past 7 Days: (1) Yes - Related Data On Oral Contraceptives: No Previous Rx's Medication Instructions Recorded Last Taken Type Albuterol Mdi (or & Nicu Only) 2 puff IH QID PRN #1 inhalation 02/01/19 Unknown Rx [Proair] Albuterol Sulfate [Proventil Hfa] 6.7 gm IH Q4HR PRN #1 hfa.aer.ad 08/06/19 Unknown Rx Loratadine [Claritin] 10 mg PO QDAY #20 tablet 08/06/19 Unknown Rx Prednisone [predniSONE 10 mg 10 mg PO .TAPER #1 tab.ds.pk 08/11/19 Unknown Rx (6-Day Pack, 21 Tabs)] Ibuprofen [Motrin] 600 mg PO Q8H PRN #20 tablet 08/25/19 Unknown Rx hydrOXYzine PAMOATE [Vistaril] 25 mg PO Q6HR PRN #30 capsule 08/25/19 Unknown Rx Allergies Allergy/AdvReac Type Severity Reaction Status Date / Time No Known Allergies Allergy Verified 08/25/19 00:10 Heart Score - HEART Score History: Slightly suspicious EKG: Non-specific Age: < 45 Risk factors: No known risk factors Troponin: < normal limit HEART Score: 1 - Critical Actions Critical Actions: 0-3 pts:0.9-1.7%risk of adverse cardiac event.Candidate for discharge ED Review of Systems ROS: Stated complaint: KIMBERLY Other details as noted in HPI Constitutional: denies: fever Respiratory: denies: cough Cardiovascular: chest pain Gastrointestinal: denies: abdominal pain Genitourinary: denies: dysuria Musculoskeletal: back pain Neurological: denies: weakness ED Past Medical Hx - Past Medical History Previous Medical History?: No Hx Psychiatric Treatment: Yes (Anxiety) - Surgical History Past Surgical History?: No - Social History Smoking Status: Never Smoker Substance Use Type: Cocaine - Medications Home Medications: Home Medications Medication Instructions Recorded Confirmed Last Taken Type Albuterol Mdi (or & Nicu Only) 2 puff IH QID PRN #1 inhalation 02/01/19 Unknown Rx [Proair] Albuterol Sulfate [Proventil Hfa] 6.7 gm IH Q4HR PRN #1 hfa.aer.ad 08/06/19 Unk nown Rx Loratadine [Claritin] 10 mg PO QDAY #20 tablet 08/06/19 Unknown Rx Prednisone [predniSONE 10 mg 10 mg PO .TAPER #1 tab.ds.pk 08/11/19 Unknown Rx (6-Day Pack, 21 Tabs)] Ibuprofen [Motrin] 600 mg PO Q8H PRN #20 tablet 08/25/19 Unknown Rx hydrOXYzine PAMOATE [Vistaril] 25 mg PO Q6HR PRN #30 capsule 08/25/19 Unknown Rx ED Physical Exam - General Limitations: Language Barrier General appearance: alert, in no apparent distress - Head Head exam: Present: atraumatic, normocephalic - Eye Eye exam: Present: normal appearance, EOMI. Absent: nystagmus - ENT ENT exam: Present: normal exam, normal orophraynx, mucous membranes moist, normal external ear exam - Neck Neck exam: Present: normal inspection, full ROM. Absent: tenderness, meningismus - Respiratory Respiratory exam: Present: normal lung sounds bilaterally. Absent: respiratory distress - Cardiovascular Cardiovascular Exam: Present: regular rate, normal rhythm, normal heart sounds. Absent: bradycardia, tachycardia, irregular rhythm, systolic murmur, diastolic murmur, rubs, gallop - GI/Abdominal GI/Abdominal exam: Present: soft, normal bowel sounds. Absent: distended, tenderness, guarding, rebound, rigid, pulsatile mass - Rectal Rectal exam: Present: deferred - Extremities Exam Extremities exam: Present: normal inspection, full ROM, normal capillary refill, other (2+ pulses noted in the bilateral upper and lower extremities. There is no palpable cord. negative Homans sign. Muscular compartments are soft. The pelvis is stable.). Absent: pedal edema, calf tenderness - Back Exam Back exam: Present: normal inspection, full ROM. Absent: tenderness, CVA tenderness (R), CVA tenderness (L), paraspinal tenderness, vertebral tenderness - Neurological Exam Neurological exam: Present: alert, normal gait, other (No facial droop. Tongue midline. Extraocular movements intact bilaterally. Facial sensation intact to light touch in V1, V2, V3 distribution bilaterally. 5 and a 5 strength in 4 extremities. Sensation intact to light touch in 4 extremities.). Absent: motor sensory deficit - Psychiatric Psychiatric exam: Present: normal affect, normal mood - Skin Skin exam: Present: warm, dry, intact, normal color. Absent: rash ED Course Vital Signs 11/08/19 11/08/19 11/08/19 20:43 20:44 23:55 Temperature 98.9 F 98.2 F Pulse Rate 69 62 Respiratory 16 14 Rate Blood Pressure 149/89 Blood Pressure 136/85 [Left] O2 Sat by Pulse 99 100 Oximetry AUSTIN score - Austin Score Age > 65: (0) No Aspirin use within the Past 7 Days: (1) Yes 3 or more CAD Risk Factors: (0) No 2 or more Angina events in past 24 hrs: (0) No Known CAD with more than 50% Stenosis: (0) No Elevated Cardiac Markers: (0) No ST Deviation Greater than 0.5mm: (0) No AUSTIN Score: 1 ED Medical Decision Making - Lab Data Result diagrams: 11/08/19 20:49 11/08/19 20:49 Vital Signs 11/08/19 11/08/19 11/08/19 20:43 20:44 23:55 Temperature 98.9 F 98.2 F Pulse Rate 69 62 Respiratory 16 14 Rate Blood Pressure 149/89 Blood Pressure 136/85 [Left] O2 Sat by Pulse 99 100 Oximetry Labs 11/08/19 11/08/19 20:49 20:49 WBC 9.5 RBC 5.38 H Hgb 15.9 H Hct 46.5 H MCV 86 MCH 30 MCHC 34 RDW 13.5 Plt Count 226 Lymph % (Auto) 34.2 [place] % (Auto) 6.8 Eos % (Auto) 1.1 Baso % (Auto) 0.3 Lymph # 3.3 [place] # 0.6 Eos # 0.1 Baso # 0.0 Seg Neutrophils % 57.6 Seg Neutrophils # 5.5 Sodium 134 L Potassium 3.7 Chloride 95.4 L Carbon Dioxide 24 Anion Gap 18 BUN 15 Creatinine 0.7 L Estimated GFR > 60 BUN/Creatinine Ratio 21 Glucose 88 Calcium 9.8 Troponin T < 0.010 - EKG Data -: EKG Interpreted by Tx EKG shows normal: sinus rhythm Rate: normal - EKG Data When compared to previous EKG there are: no significant change 11/09/19 00:12 Sinus rhythm, 68 bpm, normal axis, normal intervals, high left ventricular voltage, early repolarization, not a STEMI. Unchanged from prior EKG from August 2019 - Radiology Data Radiology results: pending, report reviewed, image reviewed X-ray of the chest is negative for acute disease - Medical Decision Making Differential diagnosis, include but not limited to: GERD, gastritis, hiatal hernia, pneumonia, costochondritis Assessment and plan: 34-year-old gentleman who is afebrile, with reassuring vit al signs, with weeks/months of nonspecific left-sided chest discomfort, multiple negative troponins, low risk for major adverse cardiac event as per heart score, symptoms present for greater than 8 hours, therefore, acute myocardial infarction is excluded with 1 set of cardiac enzymes as per the [facility]P clinical policy. Not currently tachycardic, tachypneic or hypoxic, endorses no DVT or pulmonary embolism risk factors, is low risk by Wells criteria for pulmonary embolism, PERC negative, and has had multiple negative D-dimers in the past. Patient resting comfortably at this time, in no acute distress. He does not appear to have an emergent medical condition at this time, and he is suitable to follow-up with an outpatient primary care doctor and/or regional service manager to complete a risk ratification. Critical care attestation.: If time is entered above; I have spent that time in minutes in the direct care of this critically ill patient, excluding procedure time. ED Disposition Clinical Impression: History of chest pain Disposition: DC-01 TO HOME OR SELFCARE Is pt being admited?: No Does the pt Need Aspirin: No Condition: Stable Instructions: Noncardiac Chest Pain (ED) Additional Instructions: Patient may purchase Pepcid/famotidine [id number], 20 mg, and may take it once every 12-24 hours. Patient may also purchase [id number] Tylenol/acetaminophen, and may take 650 mg by mouth, every 4-6 hours as needed for pain, maximum daily dose to not exceed 3 g per 24 hours. Minimize/avoid consumption of Motrin, ibuprofen, Naprosyn, Aleve, alcohol, tobacco, heavy and spicy foods. Follow-up with a primary care doctor or regional service manager within the next week. Please return to the emergency room right away with new pain, worsening pain, migration of pain, projectile vomiting, change in mental status, confusion, inability to tolerate liquid feeds, new, worsened or different symptoms not present on the initial emergency room evaluation. El paciente puede comprar Pepcid / famotidine sin receta, 20 mg, y puede tomarlo stevan vez cada 12-24 horas. El paciente tambin puede comprar Tylenol / acetaminofn de venta tim, y puede [place] 650 mg por va oral, cada 4-6 horas segn sea necesario para el dolor, la dosis diaria mxima no debe exceder los 3 g por 24 horas. Minimice / evite el consumo de Motrin, ibuprofeno, Naprosyn, Aleve, alcohol, tabaco, alimentos pesados ??y picantes. Vanessa un seguimiento con un mdico de atencin primaria o un cardilogo dentro de la prxima semana. Regrese a la kevin de emergencias de inmediato con un nuevo dolor, empeoramiento del dolor, migracin del dolor, vmito proyectil, cambio en el estado mental, confusin, incapacidad para tolerar la alimentacin lquida, sntomas nuevos, empeorados o diferentes que no estn presentes en la evaluacin inicial de la kevin de emergencias. Referrals: STAN CAMPOVERDE MD [Staff Physician] - 3-5 Days RAFAEL ZAMARRIPA MD [Staff Physician] - 3-5 Days Forms: Work/School Release Form(ED) Print Language: [place]
[2019-11-09 00:53] VITALS: BP 131/79
== END 2019-11-09 00:30 | disposition home or self-care (01) ==
LOC: ED 20:35
DX: R07.89 Other chest pain (principal); F41.9 Anxiety disorder, unspecified; F14.10 Cocaine abuse, uncomplicated; Z79.1 Long term (current) use of non-steroidal anti-inflammatories (NSAID); Z79.899 Other long term (current) drug therapy
CPT/HCPCS: 36415; 71046; 80048; 84484; 85025; 93005

== ENCOUNTER 2021-05-17 18:25 | Emergency (ER) | payer SELFPAY ==
[2021-05-17 18:30] VITALS: BP 137/86
--- NOTE | 2021-05-17 20:45 | XRay Report ---
XR chest routine 2V INDICATION / CLINICAL INFORMATION: wheeze COMPARISON: 11/08/2019 FINDINGS: SUPPORT DEVICES: None. HEART / MEDIASTINUM: No significant abnormality. LUNGS / PLEURA: Lungs are clear. Costophrenic sulci are sharp. No pneumothorax. ADDITIONAL FINDINGS: No significant additional findings. IMPRESSION: 1. No acute findings. Signer Name: Chucho Glaser MD Signed: 05/17/2021 8:41 PM Workstation Name: [id number]
--- NOTE | 2021-05-17 21:44 | Emergency Department Report ---
ED General Adult HPI - General Chief complaint: Chest Pain Stated complaint: CHEST PAIN Time Seen by Provider: 05/17/21 20:07 Source: patient Mode of arrival: Ambulatory Limitations: No Limitations - History of Present Illness Initial comments: 36-year-old male presents emergency department complaining of a 3-day history of mid chest pain of unknown etiology reports no fever, chills, sweats. No hemoptysis no hematemesis medic easy, no nausea, no vomiting -: Gradual Radiation: non-radiation Quality: aching, dull Consistency: constant Improves with: none Worsens with: none Associated Symptoms: denies other symptoms, chest pain. denies: diaphoresis, loss of appetite, malaise, nausea/vomiting, rash, seizure, shortness of breath, syncope, weakness - Related Data Previous Rx's Medication Instructions Recorded Last Taken Type Albuterol Mdi (or & Nicu Only) 2 puff IH QID PRN #1 inhalation 02/01/19 Unknown Rx [Proair] Albuterol Sulfate [Proventil Hfa] 6.7 gm IH Q4HR PRN #1 hfa.aer.ad 08/06/19 Unknown Rx Loratadine [Claritin] 10 mg PO QDAY #20 tablet 08/06/19 Unknown Rx Prednisone [predniSONE 10 mg 10 mg PO .TAPER #1 tab.ds.pk 08/11/19 Unknown Rx (6-Day Pack, 21 Tabs)] Ibuprofen [Motrin] 600 mg PO Q8H PRN #20 tablet 08/25/19 Unknown Rx hydrOXYzine PAMOATE [Vistaril] 25 mg PO Q6HR PRN #30 capsule 08/25/19 Unknown Rx Ketorolac [Toradol] 10 mg PO Q6H PRN #20 05/17/21 Unknown Rx Allergies Allergy/AdvReac Type Severity Reaction Status Date / Time No Known Allergies Allergy Verified 08/25/19 00:10 ED Review of Systems ROS: Stated complaint: CHEST PAIN Other details as noted in HPI Comment: All other systems reviewed and negative ED Past Medical Hx - Past Medical History Hx Psychiatric Treatment: Yes (Anxiety) - Social History Smoking Status: Never Smoker Substance Use Type: Cocaine - Medications Home Medications: Home Medications Medication Instructions Recorded Confirmed Last Taken Type Albuterol Mdi (or & Nicu Only) 2 puff IH QID PRN #1 inhalation 02/01/19 Unknown Rx [Proair] Albuterol Sulfate [Proventil Hfa] 6.7 gm IH Q4HR PRN #1 hfa.aer.ad 08/06/19 Unknown Rx Loratadine [Claritin] 10 mg PO QDAY #20 tablet 08/06/19 Unknown Rx Prednisone [predniSONE 10 mg 10 mg PO .TAPER #1 tab.ds.pk 08/11/19 Unknown Rx (6-Day Pack, 21 Tabs)] Ibuprofen [Motrin] 600 mg PO Q8H PRN #20 tablet 08/25/19 Unknown Rx hydrOXYzine PAMOATE [Vistaril] 25 mg PO Q6HR PRN #30 capsule 08/25/19 Unknown Rx Ketorolac [Toradol] 10 mg PO Q6H PRN #20 05/17/21 Unknown Rx ED Physical Exam - General Limitations: No Limitations General appearance: alert, in no apparent distress - Head Head exam: Present: atraumatic, normocephalic - Eye Eye exam: Present: normal appearance, PERRL, EOMI Pupils: Present: normal accommodation - ENT ENT exam: Present: normal exam, normal orophraynx, mucous membranes moist - Neck Neck exam: Present: normal inspection - Respiratory Respiratory exam: Present: normal lung sounds bilaterally, chest wall tenderness. Absent: respiratory distress, rales, rhonchi, decreased breath sounds, prolonged expiratory - Cardiovascular Cardiovascular Exam: Present: regular rate, normal rhythm. Absent: systolic murmur, diastolic murmur, rubs, gallop - GI/Abdominal GI/Abdominal exam: Present: soft, normal bowel sounds - Rectal Rectal exam: Present: deferred - Extremities Exam Extremities exam: Present: normal inspection - Back Exam Back exam: Present: normal inspection - Neurological Exam Neurological exam: Present: alert, oriented X3 - Psychiatric Psychiatric exam: Present: normal affect, normal mood - Skin Skin exam: Present: warm, dry, intact, normal color. Absent: rash ED Course Vital Signs 05/17/21 18:29 Temperature 98.6 F Pulse Rate 70 Respiratory 18 Rate Blood Pressure 137/86 O2 Sat by Pulse 98 Oximetry ED Medical Decision Making - EKG Data EKG shows normal: sinus rhythm Rate: normal - EKG Data Interpretation: normal EKG - Radiology Data Radiology results: report reviewed [facility] [address] [place] [address] XRay Report Signed Patient: DAYNE MOON MR#: [id number] : 1985 Acct:[id number] Age/Sex: 36 / M ADM Date: 05/17/21 Loc: ED Attending Dr: Ordering Physician: DARRYN WEEKS Date of Service: 05/17/21 Procedure(s): XR chest routine 2V Accession Number(s): [id number] cc: DARRYN WEEKS Fluoro Time In Minutes: XR chest routine 2V INDICATION / CLINICAL INFORMATION: wheeze COMPARISON: 11/08/2019 FINDINGS: SUPPORT DEVICES: None. HEART / MEDIASTINUM: No significant abnormality. LUNGS / PLEURA: Lungs are clear. Costophrenic sulci are sharp. No pneumothorax. ADDITIONAL FINDINGS: No significant additional findings. IMPRESSION: 1. No acute findings. Signer Name: Chucho Glaser MD Signed: 05/17/2021 8:41 PM Workstation Name: [id number] Transcribed By: CS Dictated By: Chucho Glaser MD Electronically Authenticated By: Chucho Glaser MD Signed Date/Time: 05/17/212040 DD/ 40 TD/TT: Print Cancel - Medical Decision Making This patient presents with chest pain that is very unlikely angina or acute coronary syndrome. The emergency department evaluation has not identified any cause for suspicion that this chest pain has a cardiac etiology. Based on their history, EKG (which showed no evidence of ischemia or infarction) and imaging, in addition to the patient's physical exam, I see no evidence at this time for a malignant etiology for the patient's chest pain. There is no acute evidence for pulmonary embolus, acute myocardial infarction, pneumothorax, Boerhaeve syndrome, cardiac tamponade, thoracic artery dissection, or any other emergent cardiac, pulmonary or aortic pathology. Given the low pre-test probability for cardiac etiology of chest pain and the absence of any sign of ischemia or infarction, discharge for outpatient follow-up and further evaluation is reasonable. I have explained to the patient that even though a cardiac problem is very unlikely, follow-up and further testing is required to reduce further the already small uncertainty that exists. Other life-threatening diagnoses have been considered. The patient understands the need to return immediately if their symptoms worsen or they develop any new symptoms, and not to engage in any significant exertional activity until follow-up is obtained. Critical care attestation.: If time is entered above; I have spent that time in minutes in the direct care of this critically ill patient, excluding procedure time. ED Disposition Clinical Impression: Chest pain Disposition: HOME / SELF CARE / HOMELESS Is pt being admited?: No Does the pt Need Aspirin: No Condition: Stable Instructions: Nonspecific Chest Pain, Adult, Angina, Chest Wall Pain, Costochon dritis Prescriptions: Ketorolac [Toradol] 10 mg PO Q6H PRN #20 PRN Reason: Pain Referrals: [facility] [Provider Group] - 3-5 Days PRIMARY CARE, [Primary Care Provider] - 3-5 Days
--- NOTE | 2021-05-19 14:27 | Electrocardiograph Report ---
[facility] Test Date: 2021-05-17 Test Time: 18:41:31 Pat Name: DAYNE MOON Department: Room: Gender: M Cost Manager: JEFF : 1985 Requested By: ULYSSES DE LOS SANTOS Order Number: [id number] Reading MD: Meño Vivas Measurements Intervals [place] Rate: 61 P: 31 MS: 151 QRS: 30 QRSD: 91 T: 22 QT: 403 QTc: 408 Interpretive Statements Sinus rhythm No previous ECG available for comparison Electronically Signed On 05-19-2021 14:27:34 EST by Meño Vivas
== END 2021-05-17 21:49 | disposition home or self-care (01) ==
LOC: ED 18:25
DX: R07.89 Other chest pain (principal); F41.9 Anxiety disorder, unspecified; F14.90 Cocaine use, unspecified, uncomplicated; Z79.899 Other long term (current) drug therapy
CPT/HCPCS: 71046; 93005; 93010; 99283

== ENCOUNTER 2021-08-22 10:22 | Emergency (ER) | payer SELFPAY ==
[2021-08-22 11:52] VITALS: BP 132/88
== END 2021-08-22 21:00 | disposition left against medical advice (07) ==
LOC: ED 10:22
DX: R07.9 Chest pain, unspecified (principal); Z53.21 Procedure and treatment not carried out due to patient leaving prior to being seen by health care provider